=== PATIENT | male | born 1945 | race Caucasian/White ===

== ENCOUNTER 2016-02-12 13:27 | Outpatient (RCR) | payer BC ==
[~2016-02-12 13:27] MED LIST: AMIT25TA9 PO; AMOX-355 PO; ASPI-860 PO; CEPH-507 PO; DOCU-34 PO; ETOP20VI IV; GLBR2.5T PO; GLBR5T PO; GLIP10TA13 PO; HYDR-3702 PO; HYDR-707 PO; LISI-592 PO; LISI1TAB17; LOPE2CAP PO; METF850T PO; NAPR250T PO; NAPR250T34 PO; OMEG1CAP58 PO; OMEG300C3 PO; ONDA4TAB11 PO; PROC10TA PO; SILD100T PO; SIMV40TA2 PO; [UNRECOGNIZED DRUG - CODE] IV; [UNRECOGNIZED DRUG - CODE] PO
[2016-02-14] VITALS (14 sets, daily range): BP systolic 112–150; BP diastolic 44–58
--- NOTE | 2016-02-14 08:45 | NUR ---
To room 341 with walker and - immediately requesting to use toilet - upset with ICU toilet - B Dwight walked with patient to [facility] restroom on 3rd floor
[2016-02-14] MEDS ORDERED: diphenhydrAMINE 25 MG (BENADRYL) TABLET PO SCH (09:00)
[2016-02-14] MEDS ORDERED: SODIUM CHLORIDE FLUSH 3 ML SYR IV PRN (09:00)
[2016-02-14] MEDS ORDERED: LMX 4 KIT (LIDOCAINE 4% 5 GM TUBE/TRANSPARENT DRESSING) TOP PRN (09:00)
[2016-02-14] MEDS ORDERED: ACETAMINOPHEN 325 MG TAB (TYLENOL) PO SCH (09:00)
[2016-02-14] MEDS ORDERED: NS 250 ML (IVPB) BAG IV SCH (09:00)
[2016-02-14] MEDS ORDERED: SODIUM CHLORIDE FLUSH 10 ML SYR IV PRN (09:00)
--- NOTE | 2016-02-14 09:05 | NUR ---
Back to room - signed consent for blood administration - O2 applied @ 2 L per nc O2 sat 88% to low 90s
--- NOTE | 2016-02-14 09:10 | NUR ---
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
--- NOTE | 2016-02-14 09:20 | NUR ---
Premeds: tylenol 650 mg and benadryl 25 mg po as ordered
--- NOTE | 2016-02-14 09:28 | NUR ---
NS 250 mL hung to infuse as primary
--- NOTE | 2016-02-14 09:35 | NUR ---
#1 unit pRBC hung to infuse @ 100 mL/hr
--- NOTE | 2016-02-14 09:40 | NUR ---
Blood in IV tubing has reached patient
--- NOTE | 2016-02-14 09:45 | NUR ---
1st 5 minute VS obtained - patient sleeping
--- NOTE | 2016-02-14 09:55 | NUR ---
Blood IV rate increased to 125 mL/hr
--- NOTE | 2016-02-14 11:30 | NUR ---
#1 unit pRBC infused - walked to bed - "yeah I guess I will lie down" - falls asleep unless disturbed
--- NOTE | 2016-02-14 11:35 | NUR ---
#2 pRBC hung to infuse @ 100 mL/hr
--- NOTE | 2016-02-14 12:15 | NUR ---
pRBC rate increased to 125 mL/hr - sleeping
--- NOTE | 2016-02-14 12:30 | NUR ---
Up to chair for lunch
--- NOTE | 2016-02-14 13:50 | NUR ---
Line flushed c NS --- 10 mL NS flush followed by 500 units/5 units heparin - nyla cath needle DC'd
--- NOTE | 2016-02-14 13:51 | NUR ---
IV volume infused 564 - ate well for lunch
--- NOTE | 2016-02-14 13:55 | NUR ---
Ambulated with walker through front door with accompanying - good spirits
== END 2016-05-12 | disposition home or self-care (01) ==
LOC: EUOP 13:27 → ICU 02-14 08:53
PROVIDERS: ATTEND Internal Medicine Hematology & Oncology
DX: C34.12 Malignant neoplasm of upper lobe, left bronchus or lung (principal); D63.0 Anemia in neoplastic disease; C34.90 Malignant neoplasm of unspecified part of unspecified bronchus or lung; R05 Cough
CPT/HCPCS: 36415; 36430; 85018; 86850; 86870; 86880; 86885; 86900; 86901; 86902; 86905; 86906; 86920; 86921; 86922; J1642; J7050; P9040

== ENCOUNTER → 2016-02-19 | Outpatient (CLI) | payer BC ==
[2016-02-19 08:12] LABS: MEAN CORPUSCULAR HGB CONC 33.6 g/dL (31.0-37.0); MEAN CORPUSCULAR VOLUME 94 FL (80-100); MEAN PLATELET VOLUME 8.3 FL (6.0-9.5); PLATELET COUNT 118 10^3uL (150-450); WHITE BLOOD COUNT 5.59 10^3uL (4.0-11.0)
[2016-02-19 08:50] LABS: MEAN CORPUSCULAR HEMOGLOBIN 31.4 PG (26.0-34.0)
[2016-02-19 08:54] LABS: BAND NEUTROPHILS % 6 % (0-6); EOSINOPHILS % 2 % (0-4); MONOCYTES # 0.7 #; MONOCYTES % 14 % (3-11); SEGMENTED NEUTROPHILS % 40 % (51-67); TOTAL CELLS COUNTED 100
[2016-02-19 08:55] LABS: ANISOCYTOSIS SLIGHT; RBC MORPH SEE REFERENCE (NORMAL)
[2016-02-19 09:00] LABS: ALBUMIN 3.8 g/dL (3.4-5.0); ANION GAP 15.2 MEQ/L (3-15); CALCULATED IONIZED CALCIUM 4.2 mg/dL (3.8-4.6); MAGNESIUM* 2.2 mg/dL (1.6-2.3); PHOSPHORUS 4.6 mg/dL (2.4-4.9); TOTAL PROTEIN 6.6 g/dL (6.4-8.5)
== END ==
LOC: LAB 08:00
PROVIDERS: ATTEND Internal Medicine
DX: C34.12 Malignant neoplasm of upper lobe, left bronchus or lung (principal)
CPT/HCPCS: 36415; 80053; 83615; 83735; 84100; 85007; 85027

== ENCOUNTER → 2016-03-24 | Outpatient (CLI) | payer BC ==
[2016-03-24 11:09] LABS: BASOPHILS % (AUTO) 0 % (0-2); EOSINOPHILS # (AUTO) 0.5 10^3uL; EOSINOPHILS % (AUTO) 7 % (0-4); LYMPHOCYTES # (AUTO) 1.7 X10^3; MEAN CORPUSCULAR HEMOGLOBIN 30.2 PG (26.0-34.0); MEAN CORPUSCULAR HGB CONC 33.3 g/dL (31.0-37.0); MEAN CORPUSCULAR VOLUME 91 FL (80-100); MONOCYTES # (AUTO) 0.8 X10^3; MONOCYTES % (AUTO) 10 % (3-11); NEUTROPHILS # (AUTO) 4.5 X10^3; NEUTROPHILS % (AUTO) 60 % (51-67); PLATELET COUNT 218 10^3uL (150-450); WHITE BLOOD COUNT 7.54 10^3uL (4.0-11.0)
[2016-03-24 11:45] LABS: ALBUMIN 3.6 g/dL (3.4-5.0); ANION GAP 17.2 MEQ/L (3-15); CALCULATED IONIZED CALCIUM 4.1 mg/dL (3.8-4.6)
== END ==
LOC: LAB 10:49
PROVIDERS: ATTEND Internal Medicine
DX: C34.12 Malignant neoplasm of upper lobe, left bronchus or lung (principal)
CPT/HCPCS: 36415; 80053; 84443; 85025

== ENCOUNTER 2016-03-31 08:55 | Outpatient (RCR) | payer BC ==
[2016-03-31 09:07] LABS: BASOPHILS % (AUTO) 0 % (0-2); EOSINOPHILS # (AUTO) 0.7 10^3uL; EOSINOPHILS % (AUTO) 10 % (0-4); LYMPHOCYTES # (AUTO) 2.4 X10^3; MEAN CORPUSCULAR HEMOGLOBIN 29.7 PG (26.0-34.0); MEAN CORPUSCULAR HGB CONC 32.9 g/dL (31.0-37.0); MEAN CORPUSCULAR VOLUME 90 FL (80-100); MEAN PLATELET VOLUME 8.2 FL (6.0-9.5); MONOCYTES # (AUTO) 0.5 X10^3; MONOCYTES % (AUTO) 7 % (3-11); NEUTROPHILS # (AUTO) 3.2 X10^3; NEUTROPHILS % (AUTO) 47 % (51-67); PLATELET COUNT 245 10^3uL (150-450); WHITE BLOOD COUNT 6.75 10^3uL (4.0-11.0)
[2016-03-31 09:19] LABS: ANION GAP 17.2 MEQ/L (3-15); CALCULATED IONIZED CALCIUM 3.9 mg/dL (3.8-4.6)
[2016-04-07 09:23] LABS: BASOPHILS % (AUTO) 1 % (0-2); EOSINOPHILS # (AUTO) 0.4 10^3uL; EOSINOPHILS % (AUTO) 8 % (0-4); LYMPHOCYTES # (AUTO) 1.6 X10^3; MEAN CORPUSCULAR HEMOGLOBIN 29.4 PG (26.0-34.0); MEAN CORPUSCULAR HGB CONC 32.3 g/dL (31.0-37.0); MEAN CORPUSCULAR VOLUME 91 FL (80-100); MEAN PLATELET VOLUME 8.4 FL (6.0-9.5); MONOCYTES # (AUTO) 0.5 X10^3; MONOCYTES % (AUTO) 8 % (3-11); NEUTROPHILS # (AUTO) 3.1 X10^3; NEUTROPHILS % (AUTO) 55 % (51-67); PLATELET COUNT 223 10^3uL (150-450); WHITE BLOOD COUNT 5.64 10^3uL (4.0-11.0)
[2016-04-07 10:09] LABS: ALBUMIN 3.4 g/dL (3.4-5.0); TOTAL PROTEIN 6.6 g/dL (6.4-8.5)
== END 2016-04-16 08:30 | disposition home or self-care (01) ==
LOC: LAB 08:55 → EDSTATUS 08:55 → LAB 04-16 08:30
PROVIDERS: ATTEND Internal Medicine
DX: C34.12 Malignant neoplasm of upper lobe, left bronchus or lung (principal)
CPT/HCPCS: 36415; 80053; 84443; 85025

== ENCOUNTER 2016-04-01 15:49 | Emergency (ER) | payer BC ==
[~2016-04-01] VITALS: Ht 177.8 cm; Wt 84.0 kg
[2016-04-01 16:40] LABS: BASOPHILS % (AUTO) 0 % (0-2); EOSINOPHILS # (AUTO) 0.3 10^3uL; EOSINOPHILS % (AUTO) 5 % (0-4); LYMPHOCYTES # (AUTO) 0.6 X10^3; MEAN CORPUSCULAR HEMOGLOBIN 29.6 PG (26.0-34.0); MEAN CORPUSCULAR HGB CONC 32.4 g/dL (31.0-37.0); MEAN CORPUSCULAR VOLUME 91 FL (80-100); MEAN PLATELET VOLUME 8.6 FL (6.0-9.5); MONOCYTES # (AUTO) 0.1 X10^3; MONOCYTES % (AUTO) 1 % (3-11); NEUTROPHILS # (AUTO) 4.2 X10^3; NEUTROPHILS % (AUTO) 82 % (51-67); PLATELET COUNT 203 10^3uL (150-450); WHITE BLOOD COUNT 5.19 10^3uL (4.0-11.0)
[2016-04-01 16:43] LABS: INFLUENZA VIRUS TYPE A ANTIBOD Negative (NEGATIVE); INFLUENZA VIRUS TYPE B ANTIBOD Negative (NEGATIVE)
[2016-04-01 16:49] LABS: ALBUMIN 3.7 g/dL (3.4-5.0); ANION GAP 19.5 MEQ/L (3-15); CALCULATED IONIZED CALCIUM 3.8 mg/dL (3.8-4.6); TOTAL PROTEIN 7.3 g/dL (6.4-8.5)
[2016-04-01] MEDS ORDERED: POLYETHYLENE GLYCOL 17 GM (MIRALAX) PACKET PO PRN (18:10)
[2016-04-01] MEDS ORDERED: EPINEPHrine 1MG/ML (1:1000) 1 ML AMPUL (ADRENALIN) IM PRN (18:10)
[2016-04-01] MEDS ORDERED: CALCIUM CARBONATE CHEWABLE 300 MG (TUMS) TABLET PO PRN (18:10)
[2016-04-01] MEDS ORDERED: DEXTROSE ORAL GEL (GLUTOSE 40%) 15 GM TUBE PO PRN (18:10)
[2016-04-01] MEDS ORDERED: diphenhydrAMINE 50 MG/ML INJ (BENADRYL) IV PRN (18:10)
[2016-04-01] MEDS ORDERED: MAGNESIUM HYDROXIDE 80MG/ML (MILK OF MAGNESIA) 30 ML UDC PO PRN (18:10)
[2016-04-01] MEDS ORDERED: DEXTROSE 50% 25 GM/50 ML SYRINGE IV PRN (18:10)
[2016-04-01] MEDS ORDERED: MAG HYDROX/AL HYDROX/SIMETH 200-200-20/5 ML (MAG-AL PLUS) 30 ML UDC PO PRN (18:10)
[2016-04-01] MEDS ORDERED: ONDANSETRON 4 MG (ZOFRAN) ORAL DISSOLVE TAB PO PRN (18:10)
[2016-04-01] MEDS ORDERED: GLUCAGON EMERGENCY 1 MG/KIT IM PRN (18:10)
[2016-04-01] MEDS ORDERED: DOCUSATE SODIUM 100 MG (COLACE) CAP PO PRN (18:10)
[2016-04-01] MEDS ORDERED: PROMETHAZINE HCL INJ 12.5 MG in SODIUM CHLORIDE 25 ML IV PRN (18:10)
[2016-04-01] MEDS ORDERED: ACETAMINOPHEN 325 MG TAB (TYLENOL) PO PRN (18:10)
[2016-04-01] MEDS ORDERED: ONDANSETRON 2 MG/ML (Z0FRAN) 2 ML VIAL IV PRN (18:10)
[2016-04-01 18:22] VITALS: BP 119/51
--- NOTE | 2016-04-01 18:40 | NUR ---
PT ASKS TO GET UP HE IS UNCOMFORTABLE IN THE ED BED & ASSISTED TO W/C FOR ADMISSION. MASK PLACED & PORTABLE O2 OBTAINED. WHEN THIS RN RETURNS TO ROOM AFTER BAGGING CLOTHES FAMILY INFORMS THIS RN THAT PT FEELS BETTER & WOULD LIKE TO GO HOME INSTEAD OF BEING ADMITTED. DR HESS NOTIFIED. CL
--- NOTE | 2016-04-01 18:55 | NUR ---
DR ANNE CALLED FOR DR HESS TO DISCUSS PT WITH HIM. CL
--- NOTE | 2016-04-01 18:58 | NUR ---
DR ANNE RETURNS CALL TO DR HESS. CL
--- NOTE | 2016-04-01 19:05 | NUR ---
DR. HESS HAS SPOKEN WITH DR. ANNE AND PATIENT WILL NOT BE ADMITTED AT THIS TIME.
--- NOTE | 2016-04-01 19:20 | NUR ---
Pt's PAC access pulled without site being heparinized. Pt does have routine appt with Oncologist in [place] tomorrow and, also, will check with Layne at [facility] re: next re-access of site. Hospital ED staff will check with pt (or ) tomorrow to follow-up on Heparinization of PAC.
[2016-04-01] MEDS ORDERED: INSULIN LISPRO 1 UNIT/0.01 ML (HUMALOG) DOSE SC SCH (21:00)
[2016-04-02] MEDS ORDERED: ENOXAPARIN 40 MG/0.4 ML (LOVENOX) SYR SC SCH (09:00)
== END 2016-04-01 19:25 | disposition home or self-care (01) ==
LOC: ED 15:50 → MED/SURG 17:40 → UNDOADMOB 17:40 → ED 19:25
DX: T50.995A Adverse effect of other drugs, medicaments and biological substances, initial encounter (principal); R50.9 Fever, unspecified; R06.02 Shortness of breath; R68.83 Chills (without fever); R25.8 Other abnormal involuntary movements; M54.89 Other dorsalgia
CPT/HCPCS: 36415; 71010; 80053; 83605; 85025; 86140; 87040; 87070; 87502; 87651; 96360; 99284; J7030